=== PATIENT | female | born 1975 ===

== ENCOUNTER 2024-04-14 14:42 | Emergency (ER) | payer OTHER ==
[~2024-04-14] VITALS: Ht 149.9 cm; Wt 65.0 kg
[2024-04-14 14:51] VITALS: TEMP 98.3
[2024-04-14] MEDS ORDERED: TOPI100T38 PO (14:59)
[2024-04-14] MEDS ORDERED: TRAZ-186 PO (15:00)
[2024-04-14] MEDS ORDERED: LEVE1000 PO (15:00)
[2024-04-14 15:10] VITALS: BP 124/79; PULSE 94; RESP 16; O2SAT 98
[2024-04-14] MEDS: LevETIRAcetam 500 MG TABLET PO ONE (15:13)
== END 2024-04-14 15:49 | disposition left against medical advice (07) ==
LOC: EMS 14:51
DX: G40.802 Other epilepsy, not intractable, without status epilepticus (principal)
CPT/HCPCS: 99283